=== PATIENT | male | born 2000 | race Caucasian/White ===

== ENCOUNTER 2018-08-04 20:25 | Emergency (ER) | payer OTHER ==
[2018-08-04] MEDS: ALPRAZOLAM 0.25 MG TAB PO (22:30)
== END 2018-08-04 22:31 | disposition home or self-care (01) ==
LOC: FTE 20:25
DX: F41.9 Anxiety disorder, unspecified (principal)
CPT/HCPCS: 99283; Z7502

== ENCOUNTER 2019-07-01 17:18 | Emergency (ER) | payer OTHER | END 2019-07-01 17:32 | disposition home or self-care (01) | LOC: E/R 17:32 | DX: R59.9 Enlarged lymph nodes, unspecified (principal); F17.210 Nicotine dependence, cigarettes, uncomplicated | CPT/HCPCS: 99282; Z7502 ==